=== PATIENT | female | born 2000 | race Caucasian/White ===

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

== ENCOUNTER 2022-01-17 06:48 | Emergency (ER) | payer OTHER, MEDICAID, SELFPAY ==
[2022-01-17] VITALS (10 sets, daily range): BP systolic 97–120; BP diastolic 51–64; PULSE 94–116; RESP 20; TEMP 37.8; O2SAT 78–98; BMI 37.8
[2022-01-17 07:10] LABS: COVID19 -Nasal RAPID POSITIVE (Negative)
--- NOTE | 2022-01-17 07:21 | ED_ITS ---
HPI - General Adult <Jessica Hazel MD - Last Filed: 01/21/22 03:33> General Chief complaint: Nausea/Vomiting/Diarrhea Stated complaint: Sick, fever, n/v/d, coughing Time Seen by Provider: 01/17/22 06:55 Source: patient Mode of arrival: Ambulatory History of Present Illness HPI narrative: 21-year-old woman with no significant medical problems presents with fever, vomiting dizziness general malaise body aches. Does not describe significant cough but she does have a significant headache. She notes that she has been vomiting significantly all night. Mom has similar symptoms not quite as severe. Last menstrual period was 3 weeks ago and she is not currently sexually active with Men. Related Data Previous Rx's Medication Instructions Recorded ondansetron 4 mg disintegrating 4 mg PO Q8H PRN #10 tab 01/17/22 tablet Allergies Allergy/AdvReac Type Severity Reaction Status Date / Time No Known Drug Allergies Allergy Verified 10/06/20 07:02 Review of Systems <Jessica Hazel MD - Last Filed: 01/21/22 03:33> Review of Systems Narrative: Remainder of complete review of systems is otherwise unremarkable except for that included in the HPI. Patient History <Jessica Hazel MD - Last Filed: 01/21/22 03:33> Medical History Irregular menstrual cycle Social History Smoking Status: Never smoker Smoking Status: Never smoker alcohol intake frequency: 0-2 drinks per day Substance Use Type: does not use Exam <Jessica Hazel MD - Last Filed: 01/21/22 03:33> Initial Vital Signs Initial Vital Signs: Vital Signs Temperature 100.1 F H 01/17/22 06:56 Pulse Rate 115 H 01/17/22 06:56 Respiratory Rate 20 01/17/22 06:56 Blood Pressure 120/64 01/17/22 06:56 Pulse Oximetry 97 01/17/22 06:56 General: Flushed, appears sick but not acutely toxic, slightly tachycardic but not tachypneic nor hypoxic. Able to give a complete and coherent history. Well-nourished well-developed HEENT: Dry mucous membranes, normal sclera with reactive pupils, Respiratory: Lungs are clear to auscultation, no wheezing no rales no rhonchi. Full and symmetrical air movement Cardiac: Tachycardic but otherwiseRegular rate and rhythm no murmurs no bruits Abdomen: Soft, mild epigastric tenderness, no rebound or guarding good bowel tones, no flank pain Skin: Pale but otherwise Warm and dry, no rashes Neurologic: Grossly neurologically intact with no obvious asymmetries or a bnormalities Extremities: No trauma, well perfused Psych: Cooperative, appropriate insight and affect <Maribel Kuo DO - Last Filed: 01/17/22 09:30> Initial Vital Signs Initial Vital Signs: Vital Signs Temperature 100.1 F H 01/17/22 06:56 Pulse Rate 115 H 01/17/22 06:56 Respiratory Rate 20 01/17/22 06:56 Blood Pressure 120/64 01/17/22 06:56 Pulse Oximetry 97 01/17/22 06:56 Course <Jessica Hazel MD - Last Filed: 01/21/22 03:33> Orders Ordered: Discontinued Medications Sodium Chloride (Normal Saline 0.9%) 1,000 mls @ 1,000 mls/hr IV BOLUS ONE Stop: 01/17/22 08:29 Last Infusion: 01/17/22 08:44 Dose: 0 mls/hr Documented by: Admin: 01/17/22 07:34 Dose: 1,000 mls/hr Documented by: DALJIT Sodium Chloride (Normal Saline 0.9%) 1,000 mls @ 1,000 mls/hr IV BOLUS ONE Stop: 01/17/22 08:55 Last Infusion: 01/17/22 09:47 Dose: 0 mls/hr Documented by: Admin: 01/17/22 08:44 Dose: 1,000 mls/hr Documented by: ELIF Ketorolac Tromethamine (Ketorolac 30 Mg/Ml Vial) 15 mg IV NOW ONE Stop: 01/17/22 07:29 Last Admin: 01/17/22 07:33 Dose: 15 mg Documented by: DALJIT Ondansetron HCl (Ondansetron 4 Mg/2 Ml Inj) 4 mg IV NOW ONE Stop: 01/17/22 07:57 Last Admin: 01/17/22 08:44 Dose: 4 mg Documented by: ELIF Vital Signs Vital signs: Vital Signs - 8 hr 01/17/22 06:56 01/17/22 06:59 01/17/22 07:00 Temperature 100.1 F H Pulse Rate 115 H 115 H 116 H Respiratory Rate 20 Blood Pressure 120/64 107/56 L Pulse Oximetry 97 95 95 01/17/22 07:29 01/17/22 07:30 01/17/22 07:38 Temperature Pulse Rate 94 H 113 H Respiratory Rate Blood Pressure 113/57 L Pulse Oximetry 78 L 94 01/17/22 08:00 01/17/22 08:30 Temperature Pulse Rate 106 H 105 H Respiratory Rate Blood Pressure 115/56 L 109/58 L Pulse Oximetry 93 93 <Maribel Kuo DO - Last Filed: 01/17/22 09:30> Orders Ordered: Discontinued Medications Sodium Chloride (Normal Saline 0.9%) 1,000 mls @ 1,000 mls/hr IV BOLUS ONE Stop: 01/17/22 08:29 Last Infusion: 01/17/22 08:44 Dose: 0 mls/hr Documented by: Admin: 01/17/22 07:34 Dose: 1,000 mls/hr Documented by: DALJIT Sodium Chloride (Normal Saline 0.9%) 1,000 mls @ 1,000 mls/hr IV BOLUS ONE Stop: 01/17/22 08:55 Last Infusion: 01/17/22 09:47 Dose: 0 mls/hr Documented by: Admin: 01/17/22 08:44 Dose: 1,000 mls/hr Documented by: ELIF Ketorolac Tromethamine (Ketorolac 30 Mg/Ml Vial) 15 mg IV NOW ONE Stop: 01/17/22 07:29 Last Admin: 01/17/22 07:33 Dose: 15 mg Documented by: DALJIT Ondansetron HCl (Ondansetron 4 Mg/2 Ml Inj) 4 mg IV NOW ONE Stop: 01/17/22 07:57 Last Admin: 01/17/22 08:44 Dose: 4 mg Documented by: ELIF Vital Signs Vital signs: Vital Signs - 8 hr 01/17/22 06:56 01/17/22 06:59 01/17/22 07:00 Temperature 100.1 F H Pulse Rate 115 H 115 H 116 H Respiratory Rate 20 Blood Pressure 120/64 107/56 L Pulse Oximetry 97 95 95 01/17/22 07:29 01/17/22 07:30 01/17/22 07:38 Temperature Pulse Rate 94 H 113 H Respiratory Rate Blood Pressure 113/57 L Pulse Oximetry 78 L 94 01/17/22 08:00 01/17/22 08:30 Temperature Pulse Rate 106 H 105 H Respiratory Rate Blood Pressure 115/56 L 109/58 L Pulse Oximetry 93 93 Medical Decision Making <Jessica Hazel MD - Last Filed: 01/21/22 03:33> Lab Data Result diagrams: 01/17/22 08:01 01/17/22 08:01 Labs: Lab Results 01/17/22 01/17/22 01/17/22 Range/Units 06:55 08:01 08:01 WBC 6.7 (4.5-11.0) X10^3/uL RBC 4.59 (4.0-5.2) X10^6/uL Hgb 12.4 (12.0-16.0) g/dL Hct 36.5 (36-46) % MCV 79.5 L (80-100) fL MCH 27.0 (26-34) PG MCHC 33.9 (30-36) % RDW 13.7 (11.6-14.8) % Plt Count 260 (150-400) X10^3/uL Neut % (Auto) 80.9 H (50-75) % Lymph % (Auto) 6.1 L (25-40) % [place] % (Auto) 12.5 (3-14) % Eos % (Auto) 0.0 L (2-4) % Baso % (Auto) 0.5 (0-2) % Neut # (Auto) 5400 (2345-6900) /uL Lymph # (Auto) 400 L (1282-9764) /uL [place] # (Auto) 800 (0-900) /uL Eos # (Auto) 0 (0-450) /uL Baso # (Auto) 0 (0-100) /uL Sodium 135 L (137-145) mmol/L Potassium 3.6 (3.4-5.1) mmol/L Chloride 102 (98-107) mmol/L Carbon Dioxide 22 (22-32) mmol/L BUN 12 (7-17) mg/dL Creatinine 0.78 (0.52-1.04) mg/dL Estimated GFR > 60 (>60) mL/min BUN/Creatinine Ratio 15.4 (6-22) Glucose 129 H (70-100) mg/dL Calcium 8.9 (8.4-10.2) mg/dL Magnesium 1.9 (1.6-2.3) mg/dL Total Bilirubin 0.5 (0.2-1.3) mg/dL AST 33 (14-36) IU/L ALT 16 (<35) IU/L Alkaline Phosphatase 78 (38-126) U/L Total Protein 8.0 (6.3-8.2) g/dL Albumin 4.4 (3.5-5.0) g/dL Globulin 3.6 (1.7-4.1) g/dL Albumin/Globulin Ratio 1.2 (1.0-2.8) SARS-CoV-2 (PCR) Positive H (Negative) MDM Narrative Medical decision making narrative: 21-year-old woman with acute onset upper respiratory symptoms and nausea and vomiting significant headache over the last 24 hours. COVID test is positive. She is significantly dehydrated from the vomiting. She is given a L of fluid, Zofran, Toradol. Will discuss antivirals to treat her COVID infection at time of discharge <Maribel Kuo, - Last Filed: 01/17/22 09:30> Lab Data Labs: Lab Results 01/17/22 01/17/22 01/17/22 Range/Units 06:55 08:01 08:01 WBC 6.7 (4.5-11.0) X10^3/uL RBC 4.59 (4.0-5.2) X10^6/uL Hgb 12.4 (12.0-16.0) g/dL Hct 36.5 (36-46) % MCV 79.5 L (80-100) fL MCH 27.0 (26-34) PG MCHC 33.9 (30-36) % RDW 13.7 (11.6-14.8) % Plt Count 260 (150-400) X10^3/uL Neut % (Auto) 80.9 H (50-75) % Lymph % (Auto) 6.1 L (25-40) % [place] % (Auto) 12.5 (3-14) % Eos % (Auto) 0.0 L (2-4) % Baso % (Auto) 0.5 (0-2) % Neut # (Auto) 5400 (0065-5071) /uL Lymph # (Auto) 400 L (7927-4575) /uL [place] # (Auto) 800 (0-900) /uL Eos # (Auto) 0 (0-450) /uL Baso # (Auto) 0 (0-100) /uL Sodium 135 L (137-145) mmol/L Potassium 3.6 (3.4-5.1) mmol/L Chloride 102 (98-107) mmol/L Carbon Dioxide 22 (22-32) mmol/L BUN 12 (7-17) mg/dL Creatinine 0.78 (0.52-1.04) mg/dL Estimated GFR > 60 (>60) mL/min BUN/Creatinine Ratio 15.4 (6-22) Glucose 129 H (70-100) mg/dL Calcium 8.9 (8.4-10.2) mg/dL Magnesium 1.9 (1.6-2.3) mg/dL Total Bilirubin 0.5 (0.2-1.3) mg/dL AST 33 (14-36) IU/L ALT 16 (<35) IU/L Alkaline Phosphatase 78 (38-126) U/L Total Protein 8.0 (6.3-8.2) g/dL Albumin 4.4 (3.5-5.0) g/dL Globulin 3.6 (1.7-4.1) g/dL Albumin/Globulin Ratio 1.2 (1.0-2.8) SARS-CoV-2 (PCR) Positive H (Negative) [facility] Narrative Medical decision making narrative: 21-year-old woman with acute onset upper respiratory symptoms and nausea and vomiting significant headache over the last 24 hours. COVID test is positive. She is significantly dehydrated from the vomiting. She is given a L of fluid, Zofran, Toradol. Will discuss antivirals to treat her COVID infection at time of discharge Patient signed out to me by Dr. Hazel. Seen evaluated patient myself. Her heart rate has improved with IV fluids. No further vomiting in the ED. Discussion with her of packs elevated since she is unvaccinated however she declines at this time. Discussion of worsening signs or symptoms the to ED Discharge Plan Departure Patient Disposition: Home Clinical Impression: COVID-19 Instructions: DI for COVID-19 (Suspected or Confirmed ) Activity Restrictions/Additional Instructions: *You have been diagnosed with COVID-19 *What to do: Please follow CDC guidelines in regards to quarantine. Recommend staying hydrated with Gatorade or Gatorade like product. Tylenol ibuprofen as needed headache. Monitor your oxygen. If oxygen is less than 90% then return to the ER. *Continue to take medications as directed Zofran 4 mg every 8 hours if needed for nausea vomiting *Follow up with your primary care provider in 2-3 days or call [phone] *Return to ER if you should have persistent vomiting worsening headache oxygen l ess than 90% or any new, worsening or concerning symptoms Prescriptions: New ondansetron 4 mg tablet,disintegrating 4 mg PO Q8H PRN (Reason: nausea and vomiting) Qty: 10 0RF
[2022-01-17] MEDS: KETOROLAC 30 MG/ML VIAL 15 MG IV (07:33)
[2022-01-17] MEDS: SODIUM CHLORIDE 0.9% 1,000 ML 1000 ML IV ×2 (07:34→08:44)
[2022-01-17 08:05] LABS: Add Manual Diff / Slide Review NO; Basophils Absolute Auto 0 /uL (0-100); Basophils Percent Auto 0.5 % (0-2); Eosinophils Absolute Auto 0 /uL (0-450); Hematocrit 36.5 % (36-46); Hemoglobin 12.4 g/dL (12.0-16.0); Lymphocytes Absolute Auto 400 /uL (1100-4500); Lymphocytes Percent Auto 6.1 % (25-40); Mean Corpuscular HGB Conc 33.9 % (30-36); Mean Corpuscular Volume 79.5 fL (80-100); Monocytes Absolute Auto 800 /uL (0-900); Monocytes Percent Auto 12.5 % (3-14); Neutrophils Absolute Auto 5400 /uL (1500-7000); Neutrophils Percent Auto 80.9 % (50-75); Platelet Count 260 X10^3/uL (150-400); Red Blood Cell Count 4.59 X10^6/uL (4.0-5.2); Red Cell Distribution Width 13.7 % (11.6-14.8); White Blood Cell Count 6.7 X10^3/uL (4.5-11.0)
[2022-01-17 08:10] LABS: Alanine Aminotransferase 16 IU/L (<35); Albumin 4.4 g/dL (3.5-5.0); Albumin Globulin Ratio 1.2 (1.0-2.8); Alkaline Phosphatase 78 U/L (38-126); Aspartate Aminotransferase 33 IU/L (14-36); BUN Creatinine Ratio 15.4 (6-22); Bilirubin Total 0.5 mg/dL (0.2-1.3); Blood Urea Nitrogen 12 mg/dL (7-17); Calcium 8.9 mg/dL (8.4-10.2); Carbon Dioxide 22 mmol/L (22-32); Chloride 102 mmol/L (98-107); Estimated Glomerular Filt Rate > 60 mL/min (>60); Globulin 3.6 g/dL (1.7-4.1); Glucose 129 mg/dL (70-100); HEMOLYSIS 19 (0-50); Magnesium 1.9 mg/dL (1.6-2.3); Potassium 3.6 mmol/L (3.4-5.1); Sodium 135 mmol/L (137-145)
[2022-01-17] MEDS: ONDANSETRON 4 MG/2 ML INJ IV (08:44)
== END 2022-01-17 09:55 | disposition home or self-care (01) ==
PROVIDERS: Emergency Medicine; Emergency Provider Emergency Medicine
DX: U07.1 COVID-19 (principal); R42 Dizziness and giddiness; R51.9 Headache, unspecified
CPT/HCPCS: 36415; 80053; 83735; 85025; 87635; 96361; 96374; 96375; 99284; C9803; J1885; J2405

== ENCOUNTER 2022-06-25 17:10 | Emergency (ER) | payer OTHER, MEDICAID, SELFPAY ==
[2022-06-25 17:50] VITALS: BP 159/80; PULSE 87; RESP 17; TEMP 36.6; O2SAT 100; BMI 37.8
--- NOTE | 2022-06-25 17:53 | DI.RAD.S_ITS ---
PROCEDURE: XR WRIST LT MIN 3V INDICATIONS: fall TECHNIQUE: For views of the wrist were acquired. COMPARISON: None. FINDINGS: Bones: No acute fractures or dislocations. No suspicious bony lesions. Scaphoid view: Intact scaphoid. Soft tissues: No suspicious soft tissue calcifications. IMPRESSION: No acute osseous abnormality. If clinical suspicion and/or symptoms persist, additional imaging with repeat plain films, or advanced imaging (e.g. CT, MRI) may be helpful for further assessment. Approved by: Kole Munoz M.D. on 06/25/2022 at 18:17
--- NOTE | 2022-06-25 17:53 | DI.RAD.S_ITS ---
PROCEDURE: XR HAND LT MIN 3V INDICATIONS: fall TECHNIQUE: 3 views of the hand acquired. COMPARISON: None. FINDINGS: Bones: No acute fractures or dislocations. Carpal bones are normally aligned. No suspicious bony lesions. Soft tissues: No suspicious soft tissue calcifications. IMPRESSION: No acute osseous abnormality. If clinical suspicion and/or symptoms persist, additional imaging with repeat plain films, or advanced imaging (e.g. CT, MRI) may be helpful for further assessment. Approved by: Kole Munoz M.D. on 06/25/2022 at 18:18
--- NOTE | 2022-06-25 18:53 | ED.GENADULT ---
HPI - General Adult General Chief complaint: Extremity Injury, Upper Stated complaint: fall, L hand pain- thinks sprain or break Time Seen by Provider: 06/25/22 18:24 Source: patient Mode of arrival: Ambulatory History of Present Illness HPI narrative: 21-year-old female who is here for evaluation of left hand/wrist pain. She is left handed. It occurred while she was participating in a Halloween event. States she fell forward with outstretched hands and then her left wrist rolled up underneath her. She has discomfort throughout her left wrist. Related Data Allergies Allergy/AdvReac Type Severity Reaction Status Date / Time No Known Drug Allergies Allergy Verified 06/25/22 17:52 Review of Systems Constitutional Constitutional: Reports system reviewed and no additional complaints, except as documented Musculoskeletal Musculoskeletal: Reports system reviewed and no additional complaints, except as documented Integumentary/Breasts Skin/Breast: Reports system reviewed and no additional complaints, except as documented Neurologic Neurologic: Reports system reviewed and no additional complaints, except as documented Hematologic/Lymphatic On Anticoagulants: No Patient History Medical History Irregular menstrual cycle Social History Smoking Status: Never smoker Smoking Status: Never smoker alcohol intake frequency: other Substance Use Type: does not use Exam Initial Vital Signs Initial Vital Signs: Vital Signs Temperature 98 F 06/25/22 17:50 Pulse Rate 87 06/25/22 17:50 Respiratory Rate 17 06/25/22 17:50 Blood Pressure 159/80 H 06/25/22 17:50 Pulse Oximetry 100 06/25/22 17:50 Oxygen Delivery Method 06/25/22 17:50 HENCA Head: normal to inspection and normocephalic Resp Effort & Inspection: normal respiratory effort Cardio Pulses: radial pulses present on the left Skin General: no rashes or lesions noted Neuro Sensory Exam: no sensory deficits noted Extrem Other: Left shoulder and left elbow unremarkable. She does have tenderness throughout the left wrist and also at the snuffbox area. Can not flex and extend because of discomfort. Procedures Orthopedic Splinting/Casting Injury #1: Side: left Upper Extremity Injury Location: wrist Upper Extremity Immobilizer: wrist splint Course Orders Ordered: ED Orders 06/25/22 17:53 XR hand LT min 3V Stat XR wrist LT min 3V Stat Discontinued Medications Acetaminophen (Acetaminophen 325 Mg Tablet) 650 mg PO NOW ONE Stop: 06/25/22 18:52 Last Admin: 06/25/22 18:54 Dose: 650 mg Documented By: MARIANA Vital Signs Vital signs: Vital Signs - 8 hr 06/25/22 17:50 Temperature 98 F Pulse Rate 87 Respiratory Rate 17 Blood Pressure 159/80 H Pulse Oximetry 100 Oxygen Delivery Method Room Air Medical Decision Making Imaging Data Extremity x-ray #1: Radiologist's Impression: Close Wrist X-Ray (Signed) Kole Munoz - 06/25/22 Hand X-Ray (Signed) Kole Munoz - 06/25/22 Pelvis Ultrasound (Signed) Nils Valdes - 10/06/20 Launch?Image [address] [address] XRay Report Signed Patient: Winnie Zhang MR#: [id number] : 2000 Acct:[id number] Age/Sex: 21 / F Date of Service: 06/25/22 Loc: ED Accession Number: [id number] ?? Procedure: XR hand LT min 3V Ordering Provider: Satinder Mccord D.O. PROCEDURE:? XR HAND LT MIN 3V ? INDICATIONS:? fall ? TECHNIQUE:? 3 views of the hand acquired.? ? COMPARISON:? None. ? FINDINGS:? ? Bones:? No acute fractures or dislocations.? Carpal bones are normally aligned.? No suspicious bony lesions.? ? Soft tissues:? No suspicious soft tissue calcifications.? ? IMPRESSION:? No acute osseous abnormality.? If clinical suspicion and/or symptoms persist, additional imaging with repeat plain films, or advanced imaging (e.g. CT, MRI) may be helpful for further assessment. ? ? Approved by: Kole Munoz M.D. on 06/25/2022 at 18:18? Extremity x-ray #2: Radiologist's Impression: [address] [address] XRay Report Signed Patient: Winnie Zhang MR#: [id number] : 2000 Acct:[id number] Age/Sex: 21 / F Date of Service: 06/25/22 Loc: ED Accession Number: [id number] ?? Procedure: XR wrist LT min 3V Ordering Provider: Satinder Mccord D.O. PROCEDURE:? XR WRIST LT MIN 3V ? INDICATIONS: fall ? TECHNIQUE:? For views of the wrist were acquired.? ? COMPARISON:? None. ? FINDINGS:? ? Bones:? No acute fractures or dislocations.? No suspicious bony lesions.? ? Scaphoid view:? Intact scaphoid. ? Soft tissues:? No suspicious soft tissue calcifications.? ? IMPRESSION:? No acute osseous abnormality.? If clinical suspicion and/or symptoms persist, additional imaging with repeat plain films, or advanced imaging (e.g. CT, MRI) may be helpful for further assessment. ? ? ? Approved by: Kole Munoz M.D. on 06/25/2022 at 18:17? MDM Narrative Medical decision making narrative: Patient is neurovascularly intact. X-ray shows no signs of fracture or dislocation. Because of the location of the discomfort we will place her in a removable splint. She can take it off to shower and wash her hands but will have her wear it the majority of the time. She was instructed to continue to ice her wrist. She can take it off as tolerated. If she is still having discomfort in a week from now she will follow-up for repeat x-rays. Discharge Plan Departure Patient Disposition: Home Clinical Impression: Sprain and strain of wrist Instructions: DI for Wrist Sprain, How To Perform RICE (Rest, Ice, Compress, Elevate) Activity Restrictions/Additional Instructions: The x-ray today did not show any signs of fractures. You were placed in a splint for your comfort. I do recommend that the next couple days you keep it on the majority of the time however you can take it off to shower and wash your hands and also to ice your wrist. You can take Tylenol and or ibuprofen for discomfort. If in 7-10 days your still having discomfort then you do need to be re-evaluated and most likely need repeat x-rays. Visit Report Forms: Patient Portal/API
[2022-06-25] MEDS: ACETAMINOPHEN 325 MG TABLET 650 MG PO (18:54)
== END 2022-06-25 19:01 | disposition home or self-care (01) ==
PROVIDERS: Emergency Provider Emergency Medicine
DX: S63.502A Unspecified sprain of left wrist, initial encounter (principal); S66.912A Strain of unspecified muscle, fascia and tendon at wrist and hand level, left hand, initial encounter; W18.30XA Fall on same level, unspecified, initial encounter
CPT/HCPCS: 73110; 73130; 99283

== ENCOUNTER 2022-10-15 09:59 | Emergency (ER) | payer OTHER, MEDICAID, SELFPAY ==
[2022-10-15 10:09] VITALS: BP 128/78; PULSE 104; RESP 18; TEMP 36.6; O2SAT 99; BMI 36.7
--- NOTE | 2022-10-15 10:14 | DI.US.S_ITS ---
PROCEDURE: US PELVIC COMPLETE INDICATIONS: DUB, PAIN X 3 MONTHS TECHNIQUE: Real-time scanning was performed of the pelvic organs, with image documentation. Additional endovaginal scanning was necessary due to incomplete visualization of the adnexal and endometrial structures by transabdominal scanning. COMPARISON: [facility], US, US PELVIC COMPLETE, 10/06/2020, 8:45. FINDINGS: Uterus: Uterus is anteverted and normal in size at 8 x 3.3 x 4.8 cm. The myometrium is homogeneous. The endometrium measures 7 mm combined thickness. The endometrium demonstrates a heterogeneous appearance. No abnormal vascularity can be seen along the endometrial stripe. Ovaries: The right ovary measures 1.9 x 3.3 x 2.3 cm, with a calculated ovarian volume of 7.4 cc. The left ovary measures 3 x 2.6 x 2.5 cm, with a calculated ovarian volume of 10.4 cc. The ovaries have a normal sonographic appearance. More than 12 follicles can be seen in each ovary. No adnexal masses are seen. Other: No pathologic free abdominal or pelvic fluid. IMPRESSION: More than 12 follicles can be seen involving each ovary, which is consistent with polycystic ovarian syndrome. We strive to produce accurate, complete, and clear reports of imaging services. To assist us in improving patient care, this report was composed using standard report templates and voice recognition software. Therefore, it may contain abnormal punctuation, insertions and/or omissions. Occasional wrong-word or sound-alike substitutions may occur. Though we review the report and make efforts to correct it, we do recommend that the report be read carefully in proper context to recognize any text inaccuracies. Dictated by: Nils Valdes M.D. on 10/15/2022 at 10:54 Approved by: Nils Valdes M.D. on 10/15/2022 at 10:55
--- NOTE | 2022-10-15 10:23 | PC.NURSE ---
pt states she uses a pad and a tampon and has to change them both every hour and this has been going on for the last 3 months. she has not seen a provider for this due to hating the doctor and also being on vacation. has cramps that started one week ago.
[2022-10-15 10:29] LABS: Add Manual Diff / Slide Review NO; Basophils Absolute Auto 0 /uL (0-100); Basophils Percent Auto 0.3 % (0-2); Eosinophils Absolute Auto 100 /uL (0-450); Hematocrit 36.2 % (36-46); Hemoglobin 12.2 g/dL (12.0-16.0); Lymphocytes Absolute Auto 1200 /uL (1100-4500); Lymphocytes Percent Auto 11.1 % (25-40); Mean Corpuscular HGB Conc 33.8 % (30-36); Mean Corpuscular Hemoglobin 28.5 PG (26-34); Mean Corpuscular Volume 84.5 fL (80-100); Monocytes Absolute Auto 600 /uL (0-900); Monocytes Percent Auto 5.7 % (3-14); Neutrophils Absolute Auto 9000 /uL (1500-7000); Neutrophils Percent Auto 81.9 % (50-75); Platelet Count 347 X10^3/uL (150-400); Red Blood Cell Count 4.29 X10^6/uL (4.0-5.2); Red Cell Distribution Width 13.2 % (11.6-14.8)
[2022-10-15 10:38] LABS: BUN Creatinine Ratio 17.7 (6-22); Blood Urea Nitrogen 11 mg/dL (7-17); Calcium 9.1 mg/dL (8.4-10.2); Carbon Dioxide 26 mmol/L (22-32); Chloride 102 mmol/L (98-107); Estimated Glomerular Filt Rate > 60 mL/min (>60); Glucose 97 mg/dL (70-100); HEMOLYSIS < 15 (0-50); Potassium 4.2 mmol/L (3.4-5.1); Sodium 140 mmol/L (137-145)
--- NOTE | 2022-10-15 12:04 | ED_ITS ---
HPI - Female Genitourinary <AJC Reynaga - Last Filed: 10/15/22 13:12> General Chief complaint: Vaginal Bleeding Stated complaint: shaking; bad period trouble Time Seen by Provider: 10/15/22 12:00 Source: patient Mode of arrival: Ambulatory History of Present Illness HPI Narrative: 22-year-old female, daily smoker, presents to the emergency department with lower back and abdominal pain x1 month and increased and persistent vaginal bleeding x3 months. Patient states that she has been soaking through a tampon and a pad multiple times per day, sometimes as frequently as every hour. Patient states that she has been taking iron for this. Patient has a history of PCOS. Patient has not been seen her family doctor for this because she does not like them. Patient's mother, a nurse, states that every time she contacts that family doctor and explains how much pain she is in, is told to go to the emerg ency department. Related Data Previous Rx's Medication Instructions Recorded cephalexin 500 mg capsule 1,000 mg PO BID uti 7 days #28 caps 10/15/22 Allergies Allergy/AdvReac Type Severity Reaction Status Date / Time No Known Drug Allergies Allergy Verified 06/25/22 17:52 Review of Systems <JAC Reynaga - Last Filed: 10/15/22 13:12> Review of Systems Narrative: Narrative: See HPI. GENERAL: Denies fatigue, fever, sweats. Endorses chills. HEENT: Denies sinus pain, ear pain, sore throat, difficulty swallowing, dizziness. RESPIRATORY: Denies dyspnea, cough, wheezing, sputum. CARDIOVASCULAR: Denies chest pain, palpitations, edema. GASTROINTESTINAL: Denies current nausea, vomiting, diarrhea, constipation. Endorses lower abdominal pain. : Denies dysuria, frequency, incontinence, hematuria, urinary retention, flank pain.. Endorses increased vaginal bleeding. MSK: Denies weakness, joint pain, or bony pain. SKIN: Denies rash, skin lesions, or pruritis. NEUROLOGIC: Denies weakness, dizziness, headache, numbness, confusion. PSYCHIATRIC: No concerning psychosocial issues. Patient History <JAC Reynaga - Last Filed: 10/15/22 13:12> Medical History Irregular menstrual cycle tobacco type: vaping alcohol intake frequency: other Last Alcoholic Drink: none Substance Use Type: marijuana Exam <JAC Reynaga - Last Filed: 10/15/22 13:12> Narrative Exam Narrative: Exam Narrative: GENERAL: This is a well-nourished, well-developed patient, in no acute distress. HEAD: Atraumatic. Normocephalic. CARDIOVASCULAR: Regular rate and rhythm without murmurs, peripheral pulses intact, cap refill <2 sec. RESPIRATORY: Breath sounds equal and clear bilaterally. No wheezes, rales, or rhonchi. No cough. No increased respiratory effort. No accessory muscle use. GASTROINTESTINAL: Abdomen soft, mild left-sided tenderness, nondistended without guarding or rebound. No suprapubic pain. MSK: Moves all extremities. Normal range of motion, no clubbing or edema. Neurovascularly intact. Mild left lower back pain. No CVA tenderness. NEURO: A&O x 3. SKIN: Warm, dry, no rashes or lesions noted. Initial Vital Signs Initial Vital Signs: Vital Signs Temperature 97.8 F 10/15/22 10:09 Pulse Rate 104 H 10/15/22 10:09 Respiratory Rate 18 10/15/22 10:09 Blood Pressure 128/78 10/15/22 10:09 Pulse Oximetry 99 10/15/22 10:09 Oxygen Delivery Method 10/15/22 10:09 Reviewed <Giana Elizabeth DO - Last Filed: 10/15/22 18:54> Initial Vital Signs Initial Vital Signs: Vital Signs Temperature 97.8 F 10/15/22 10:09 Pulse Rate 104 H 10/15/22 10:09 Respiratory Rate 18 10/15/22 10:09 Blood Pressure 128/78 10/15/22 10:09 Pulse Oximetry 99 10/15/22 10:09 Oxygen Delivery Method 10/15/22 10:09 Course <JAC Reynaga - Last Filed: 10/15/22 13:12> Orders Ordered: ED Orders 10/15/22 10:13 Basic Metabolic Panel Stat Complete Blood Count AUTO DIFF Stat Type and Screen Stat 10/15/22 10:14 US pelvic complete Stat 10/15/22 12:30 Urine Culture Stat Urine Microscopic Stat Discontinued Medications Ketorolac Tromethamine (Ketorolac 30 Mg/Ml Vial) 30 mg IV NOW ONE Stop: 10/15/22 12:47 Last Admin: 10/15/22 12:52 Dose: 30 mg Documented By: NR Vital Signs Vital signs: Vital Signs - 8 hr 10/15/22 12:41 Pulse Rate 100 H Respiratory Rate 16 Blood Pressure 131/60 Pulse Oximetry 100 Oxygen Delivery Method Room Air <Giana Elizabeth DO - Last Filed: 10/15/22 18:54> Orders Ordered: ED Orders 10/15/22 10:13 Basic Metabolic Panel Stat Complete Blood Count AUTO DIFF Stat Type and Screen Stat 10/15/22 10:14 US pelvic complete Stat 10/15/22 12:30 Urine Culture Stat Urine Microscopic Stat Discontinued Medications Ketorolac Tromethamine (Ketorolac 30 Mg/Ml Vial) 30 mg IV NOW ONE Stop: 10/15/22 12:47 Last Admin: 10/15/22 12:52 Dose: 30 mg Documented By: NR Vital Signs Vital signs: Vital Signs - 8 hr 10/15/22 12:41 Pulse Rate 100 H Respiratory Rate 16 Blood Pressure 131/60 Pulse Oximetry 100 Oxygen Delivery Method Room Air MDM - Female Genitourinary <JAC Reynaga - Last Filed: 10/15/22 13:12> Differential Diagnosis Differential diagnosis: Likely urinary tract infection, dysmenorrhea and other (PCOS) Lab Data 10/15/22 10:13 10/15/22 10:13 Labs: Lab Results 10/15/22 10/15/22 10/15/22 Range/Units 10:13 10:13 10:13 WBC 11.0 (4.5-11.0) X10^3/uL RBC 4.29 (4.0-5.2) X10^6/uL Hgb 12.2 (12.0-16.0) g/dL Hct 36.2 (36-46) % MCV 84.5 (80-100) fL MCH 28.5 (26-34) PG MCHC 33.8 (30-36) % RDW 13.2 (11.6-14.8) % Plt Count 347 (150-400) X10^3/uL Neut % (Auto) 81.9 H (50-75) % Lymph % (Auto) 11.1 L (25-40) % Calloway % (Auto) 5.7 (3-14) % Eos % (Auto) 1.0 L (2-4) % Baso % (Auto) 0.3 (0-2) % Neut # (Auto) 9000 H (9367-3562) /uL Lymph # (Auto) 1200 (7861-5250) /uL Calloway # (Auto) 600 (0-900) /uL Eos # (Auto) 100 (0-450) /uL Baso # (Auto) 0 (0-100) /uL Sodium 140 (137-145) mmol/L Potassium 4.2 (3.4-5.1) mmol/L Chloride 102 (98-107) mmol/L Carbon Dioxide 26 (22-32) mmol/L BUN 11 (7-17) mg/dL Creatinine 0.62 (0.52-1.04) mg/dL Estimated GFR > 60 (>60) mL/min BUN/Creatinine Ratio 17.7 (6-22) Glucose 97 (70-100) mg/dL Calcium 9.1 (8.4-10.2) mg/dL Urine RBC (0-5/HPF) Urine WBC (0-5/HPF) Ur Squamous Epith Cells (0-5/HPF) Amorphous Sediment Urine Bacteria (None) Urine Mucus (Negative) Ur Culture Indicated? Blood Type O Negative Antibody Screen Negative 10/15/22 Range/Units 12:30 WBC (4.5-11.0) X10^3/uL RBC (4.0-5.2) X10^6/uL Hgb (12.0-16.0) g/dL Hct (36-46) % MCV (80-100) fL MCH (26-34) PG MCHC (30-36) % RDW (11.6-14.8) % Plt Count (150-400) X10^3/uL Neut % (Auto) (50-75) % Lymph % (Auto) (25-40) % Calloway % (Auto) (3-14) % Eos % (Auto) (2-4) % Baso % (Auto) (0-2) % Neut # (Auto) (2959-3208) /uL Lymph # (Auto) (0877-0677) /uL Calloway # (Auto) (0-900) /uL Eos # (Auto) (0-450) /uL Baso # (Auto) (0-100) /uL Sodium (137-145) mmol/L Potassium (3.4-5.1) mmol/L Chloride (98-107) mmol/L Carbon Dioxide (22-32) mmol/L BUN (7-17) mg/dL Creatinine (0.52-1.04) mg/dL Estimated GFR (>60) mL/min BUN/Creatinine Ratio (6-22) Glucose (70-100) mg/dL Calcium (8.4-10.2) mg/dL Urine RBC 5-10/hpf H (0-5/HPF) Urine WBC 30-100/hpf H (0-5/HPF) Ur Squamous Epith Cells 0-1 /hpf (0-5/HPF) Amorphous Sediment 1+ Urine Bacteria Many (>30) H (None) Urine Mucus 1+ H (Negative) Ur Culture Indicated? Specimen cultured Blood Type Antibody Screen Urine Dip Bedside Urine Glucose Negative Bedside Urine Bilirubin - Negative Bedside Urine Ketone - Negative Urine Specific [place] 1.025 Bedside Urine Occult Blood +++ Bedside Urine pH 6.0 Bedside Urine Protein ++ 100 Bedside Urine Urobilinogen - Negative Bedside Urine Nitrite + Positive Bedside Urine Leukocytes ++ 125 Esterase Imaging Data US - [employer] SALESPERSON: Radiologist's Impression: [place] [address] Ultrasound Report Signed Patient: Winnie Zhang MR#: [id number] : 2000 Acct:[id number] Age/Sex: 22 / F Date of Service: 10/15/22 Loc: ED Accession Number: [id number] ?? Procedure: US pelvic complete Ordering Provider: Giana Elizabeth D.O. PROCEDURE:? US PELVIC COMPLETE ? INDICATIONS:? DUB, PAIN X 3 MONTHS ? TECHNIQUE:? Real-time scanning was performed of the pelvic organs, with image documentation.? Additional endovaginal scanning was necessary due to incomplete visualization of the adnexal and endometrial structures by transabdominal scanning.? ? COMPARISON:? [facility], , US PELVIC COMPLETE, 10/06/2020, 8:45. ? FINDINGS:? ?? Uterus:? Uterus is anteverted and normal in size at 8 x 3.3 x 4.8 cm. The myometrium is homogeneous. ? The endometrium measures 7 mm combined thickness.? The endometrium demonstrates a heterogeneous appearance.? No abnormal vascularity can be seen along the endometrial stripe. ? Ovaries:? The right ovary measures 1.9 x 3.3 x 2.3 cm, with a calculated ovarian volume of 7.4 cc. The left ovary measures 3 x 2.6 x 2.5 cm, with a calculated ovarian volume of 10.4 cc. The ovaries have a normal sonographic appearance.? More than 12 follicl es can be seen in each ovary.? No adnexal masses are seen. ? Other:? No pathologic free abdominal or pelvic fluid. ? ? IMPRESSION:? More than 12 follicles can be seen involving each ovary, which is consistent with polycystic ovarian syndrome.? ? ? We strive to produce accurate, complete, and clear reports of imaging services. To assist us in improving patient care, this report was composed using standard report templates and voice recognition software. Therefore, it may contain abnormal punctuation, insertions and/or omissions. Occasional wrong-word or sound-alike substitutions may occur. Though we review the report and make efforts to correct it, we do recommend that the report be read carefully in proper context to recognize any text inaccuracies. ? ? Dictated by: Nlis Valdes M.D. on 10/15/2022 at 10:54 ? ? Approved by: Nils Valdes M.D. on 10/15/2022 at 10:55 ? MDM Narrative Medical decision making narrative: 22-year-old female, with history of PCOS, presents to the walk-in clinic with increased vaginal bleeding and lower abdominal pain. Assessment was encouraging but consistent with PCOS. Vaginal ultrasound reveals 12 follicles on each ovary, consistent with PCOS. Patient was given a single dose of Toradol for her pain. Point of care urine dip was consistent with UTI, positive blood, leuks and nitrates. Will treat with cephalexin, as patient states that this has worked well for her in the past. Provided a phone number for patient and mother to investigate obtaining a family doctor and OBGYN that specializes in PCOS. Discussed plan of care and return precautions with patient and mother, verbalized understanding and were agreeable course of action. <Giana Elizabeth, DO - Last Filed: 10/15/22 18:54> Lab Data Labs: Lab Results 10/15/22 10/15/22 10/15/22 Range/Units 10:13 10:13 10:13 WBC 11.0 (4.5-11.0) X10^3/uL RBC 4.29 (4.0-5.2) X10^6/uL Hgb 12.2 (12.0-16.0) g/dL Hct 36.2 (36-46) % MCV 84.5 (80-100) fL MCH 28.5 (26-34) PG MCHC 33.8 (30-36) % RDW 13.2 (11.6-14.8) % Plt Count 347 (150-400) X10^3/uL Neut % (Auto) 81.9 H (50-75) % Lymph % (Auto) 11.1 L (25-40) % Calloway % (Auto) 5.7 (3-14) % Eos % (Auto) 1.0 L (2-4) % Baso % (Auto) 0.3 (0-2) % Neut # (Auto) 9000 H (8524-3584) /uL Lymph # (Auto) 1200 (0844-6879) /uL Calloway # (Auto) 600 (0-900) /uL Eos # (Auto) 100 (0-450) /uL Baso # (Auto) 0 (0-100) /uL Sodium 140 (137-145) mmol/L Potassium 4.2 (3.4-5.1) mmol/L Chloride 102 (98-107) mmol/L Carbon Dioxide 26 (22-32) mmol/L BUN 11 (7-17) mg/dL Creatinine 0.62 (0.52-1.04) mg/dL Estimated GFR > 60 (>60) mL/min BUN/Creatinine Ratio 17.7 (6-22) Glucose 97 (70-100) mg/dL Calcium 9.1 (8.4-10.2) mg/dL Urine RBC (0-5/HPF) Urine WBC (0-5/HPF) Ur Squamous Epith Cells (0-5/HPF) Amorphous Sediment Urine Bacteria (None) Urine Mucus (Negative) Ur Culture Indicated? Blood Type O Negative Antibody Screen Negative 10/15/22 Range/Units 12:30 WBC (4.5-11.0) X10^3/uL RBC (4.0-5.2) X10^6/uL Hgb (12.0-16.0) g/dL Hct (36-46) % MCV (80-100) fL MCH (26-34) PG MCHC (30-36) % RDW (11.6-14.8) % Plt Count (150-400) X10^3/uL Neut % (Auto) (50-75) % Lymph % (Auto) (25-40) % Calloway % (Auto) (3-14) % Eos % (Auto) (2-4) % Baso % (Auto) (0-2) % Neut # (Auto) (3391-1788) /uL Lymph # (Auto) (4684-6353) /uL Calloway # (Auto) (0-900) /uL Eos # (Auto) (0-450) /uL Baso # (Auto) (0-100) /uL Sodium (137-145) mmol/L Potassium (3.4-5.1) mmol/L Chloride (98-107) mmol/L Carbon Dioxide (22-32) mmol/L BUN (7-17) mg/dL Creatinine (0.52-1.04) mg/dL Estimated GFR (>60) mL/min BUN/Creatinine Ratio (6-22) Glucose (70-100) mg/dL Calcium (8.4-10.2) mg/dL Urine RBC 5-10/hpf H (0-5/HPF) Urine WBC 30-100/hpf H (0-5/HPF) Ur Squamous Epith Cells 0-1 /hpf (0-5/HPF) Amorphous Sediment 1+ Urine Bacteria Many (>30) H (None) Urine Mucus 1+ H (Negative) Ur Culture Indicated? Specimen cultured Blood Type Antibody Screen Urine Dip Bedside Urine Glucose Negative Bedside Urine Bilirubin - Negative Bedside Urine Ketone - Negative Urine Specific [place] 1.025 Bedside Urine Occult Blood +++ Bedside Urine pH 6.0 Bedside Urine Protein ++ 100 Bedside Urine Urobilinogen - Negative Bedside Urine Nitrite + Positive Bedside Urine Leukocytes ++ 125 Esterase Discharge Plan Departure Patient Disposition: Home Clinical Impression: UTI (urinary tract infection), PCOS (polycystic ovarian syndrome) Activity Restrictions/Additional Instructions: *You have been diagnosed with PCOS and a UTI. We have given you a injection of Toradol for your pain, please do not take anymore ibuprofen or naproxen today, but may restart tomorrow. Will prescribe an antibiotic for urinary tract infection. Please contact the number below in order to obtain a family doctor and OBGYN, preferably who specializes in PCOS. For any worsening symptoms, please return to the emergency department. *What to do: *Please continue to take your regular medications as directed. [x ] New medication prescriptions sent to your pharmacy: [facility] in [place]] [ ] New medication written as a paper prescription [ ] No new medications given *Please follow up with your primary care provider in 2-3 days, call for an appointment. Let them know you were seen in the Emergency Department and that we ask that you be seen in follow up. We will electronically transmit a record of today's note if your PCP is in our system *If you do not have a primary care provider please contact the [facility] Resource line at [phone]. They will ask some questions about your medical history and help get you set up with a doctor in the community. ? Return to ER if you should have any new, worsening or concerning symptoms, such as worsening pain, severe headache, confusion, chest pain, difficulty breathing, fever greater than 101 F, shaking chills, persistent vomiting to the point that you cannot drink fluids, or other new or worsening symptoms. Prescriptions: New cephalexin 500 mg capsule 1,000 mg PO BID 7 Days Qty: 28 0RF Referrals: Miscellaneous,Doctor, [Primary Care Provider] - Stand Alone Forms: Patient Portal/API <Giana Elizabeth DO - Last Filed: 10/15/22 18:54> [facility] ED Attending Nathanature Attestation: I was immediately available in the department for consultation. Documentation has been reviewed.
[2022-10-15 12:41] VITALS: BP 131/60; PULSE 100; RESP 16; O2SAT 100
[2022-10-15] MEDS: KETOROLAC 30 MG/ML VIAL IV (12:52)
[2022-10-15 13:05] LABS: Amorphous Sediment Urine 1+; Bacteria Urine Many (>30); RBC Urine 5-10/HPF (0-5/HPF); Squamous Epithelial Cell Urine 0-1 /HPF (0-5/HPF); WBC Urine 30-100/HPF (0-5/HPF)
[2022-10-15 13:06] LABS: Culture Indicated Urine Specimen Cultured; Mucus Urine 1+ (Negative)
== END 2022-10-15 13:32 | disposition home or self-care (01) ==
PROVIDERS: Emergency Medicine; Emergency Provider Registered Nurse
DX: N39.0 Urinary tract infection, site not specified (principal); E28.2 Polycystic ovarian syndrome; R10.9 Unspecified abdominal pain; N93.9 Abnormal uterine and vaginal bleeding, unspecified
CPT/HCPCS: 36415; 76830; 76856; 80048; 81003; 81015; 85025; 86850; 86900; 86901; 87077; 87086; 87186; 96374; 99284; J1885

== ENCOUNTER → 2022-10-26 09:59 | Outpatient (CLI) | payer OTHER, MEDICAID, SELFPAY ==
[2022-10-26 11:42] LABS: Hemoglobin A1C% w Est Avg Glu 5.3 % (4.0-6.0)
[2022-10-26 11:58] LABS: Follicle Stimulating Hormone 4.07 mIU/mL; Luteinizing Hormone 7.76 mIU/mL
[2022-10-27 08:36] LABS: Insulin Level Total 22.7 uIU/mL (2.6-24.9)
[2022-11-06 15:36] LABS: Percent Free Testosterone 1.16 % (0.50-2.80); Testosterone Free 0.35 ng/dL (0.10-0.85); Testosterone Total 29.8 ng/dL (10.0-55.0)
== END ==
PROVIDERS: Referring Provider Obstetrics & Gynecology; Visit Provider Obstetrics & Gynecology
DX: E28.2 Polycystic ovarian syndrome (principal)
CPT/HCPCS: 36415; 83001; 83002; 83036; 83525; 84402; 84403

== ENCOUNTER → 2023-05-02 12:36 | Outpatient (CLI) | payer OTHER, MEDICAID, SELFPAY ==
[2023-05-02 12:45] LABS: Pregnancy Test Urine Negative (Negative)
== END ==
PROVIDERS: Visit Provider Physician Assistant
DX: R30.0 Dysuria (principal)
CPT/HCPCS: 81002; 81025; 87077; 87086; 87147

== ENCOUNTER → 2023-10-11 11:31 | Outpatient (CLI) | payer OTHER, MEDICAID, SELFPAY ==
[2023-10-11 14:00] LABS: COVID-19 CEPHEID 4-PLEX PCR Negative (Negative); Influenza A - CEPHEID Flu A NEGATIVE (NEGATIVE); Influenza B - CEPHEID Flu B NEGATIVE (NEGATIVE); Respiratory Syncytial Virus Negative (Negative)
== END ==
PROVIDERS: PCP Family Medicine; Visit Provider Physician Assistant
DX: R05.1 Acute cough (principal)
CPT/HCPCS: 0241U

== ENCOUNTER → 2023-10-11 11:32 | Outpatient (CLI) | payer OTHER, MEDICAID, SELFPAY ==
--- NOTE | 2023-10-11 11:34 | DI.RAD.S_ITS ---
PROCEDURE: XR CHEST 2V INDICATIONS: frequent SOB TECHNIQUE: 2 views of the chest were acquired. COMPARISON: None. FINDINGS: Surgical changes and devices: None. Lungs and pleura: Lungs are clear. No pleural effusions or pneumothorax. Mediastinum: Mediastinal contours are normal. Heart size is normal. Bones and chest wall: No suspicious bony abnormalities. Soft tissues appear unremarkable. IMPRESSION: No acute cardiopulmonary pathology. Dictated by: Candelario Christensen M.D. on 10/11/2023 at 16:15 Approved by: Candelario Christensen M.D. on 10/11/2023 at 16:15
== END ==
PROVIDERS: PCP Family Medicine; Referring Provider Physician Assistant; Visit Provider Physician Assistant
DX: J45.909 Unspecified asthma, uncomplicated (principal); R05.1 Acute cough
CPT/HCPCS: 0241U; 71046

== ENCOUNTER → 2023-12-04 13:32 | Outpatient (CLI) | payer SELFPAY ==
[2023-12-04 15:20] LABS: Progesterone, Total 1.21 ng/mL
== END ==
PROVIDERS: PCP Family Medicine; Referring Provider Student in an Organized Health Care Education/Training Program; Visit Provider Student in an Organized Health Care Education/Training Program
DX: N97.0 Female infertility associated with anovulation (principal)
CPT/HCPCS: 36415; 84144

== ENCOUNTER → 2024-01-19 12:14 | Outpatient (CLI) | payer OTHER, MEDICAID, SELFPAY ==
--- NOTE | 2024-01-19 12:16 | DI.RAD.S_ITS ---
PROCEDURE: XR FOREARM RT 2V INDICATIONS: eval TECHNIQUE: 2 views of the forearm were acquired. COMPARISON: [facility], CR, XR WRIST RT MIN 3V, 01/19/2024, 11:39. FINDINGS: Bones: No fractures or dislocations. There is a 5 mm lucent lesion in the central aspect of the right capitate. No associated aggressive features. Soft tissues: No suspicious soft tissue calcifications or masses. No findings to suggest presence of a elbow joint effusion. IMPRESSION: No acute bony abnormality. A nonspecific 5 mm lucent lesion in the central aspect of the capitate bone. Please see dedicated evaluation of the right wrist for further details. Dictated by: Terry De Jesus M.D. on 01/19/2024 at 16:22 Approved by: Terry De Jesus M.D. on 01/19/2024 at 16:23
--- NOTE | 2024-01-19 12:16 | DI.RAD.S_ITS ---
PROCEDURE: XR WRIST RT MIN 3V INDICATIONS: eval TECHNIQUE: 4 views of the wrist were acquired. COMPARISON: [facility], CR, XR HAND RT MIN 3V, 01/19/2024, 11:37. [facility], CR, XR WRIST LT MIN 3V, 06/25/2022, 17:57. FINDINGS: Bones: No acute fractures or dislocations. There is a 5 mm osseous lucency noted in the central aspect of the capitate; otherwise, no suspicious osseous lesions are bony erosions. No abnormal periosteal reaction. Scapholunate interval measures at the upper limits of normal. Soft tissues: No suspicious soft tissue calcifications. No suspicious soft tissue mass lesions. IMPRESSION: No acute bony abnormality. Non-specific osseous lucency involving the central aspect of the capitate without associated soft tissue mass , erosions, or periosteal reaction. Findings are favored to represent a benign process with etiologies including solitary bone cyst, fibrous dysplasia, or possible enchondroma. If there are localizing symptoms or persistent pain, consider further evaluation with MRI. Dictated by: Terry De Jesus M.D. on 01/19/2024 at 16:13 Approved by: Terry De Jesus M.D. on 01/19/2024 at 16:22
--- NOTE | 2024-01-19 12:16 | DI.RAD.S_ITS ---
PROCEDURE: XR HAND RT MIN 3V INDICATIONS: eval TECHNIQUE: 3 views of the hand(s) acquired. COMPARISON: [facility], CR, XR WRIST RT MIN 3V, 01/19/2024, 11:39. [facility], CR, XR HAND LT MIN 3V, 06/25/2022, 17:57. FINDINGS: Bones: No fractures or dislocations. Carpal bones are normally aligned. No suspicious bony lesions. Soft tissues: No suspicious soft tissue calcifications. IMPRESSION: No visualized acute fracture or dislocation. However, if clinical concern and/or pain persist, short interval imaging followup in 7-10 days is recommended, as occult injury cannot be definitively excluded. Dictated by: Miri Chan M.D. on 01/19/2024 at 17:13 Approved by: Miri Chan M.D. on 01/19/2024 at 17:14
--- NOTE | 2024-01-19 12:16 | DI.RAD.S_ITS ---
PROCEDURE: XR ELBOW RT MIN 3V INDICATIONS: eval TECHNIQUE: 3 views of the elbow were acquired. COMPARISON: None. FINDINGS: Bones: No fractures or dislocations. No suspicious bony lesions. Soft tissues: No elbow joint effusion. No suspicious soft tissue calcifications. IMPRESSION: No acute bony abnormality or significant joint effusion. If there are persistent symptoms or clinical suspicion for pathology, then repeat radiographs or advanced imaging (CT or MRI) may be considered for further evaluation. Dictated by: Terry De Jesus M.D. on 01/19/2024 at 16:24 Approved by: Terry De Jesus M.D. on 01/19/2024 at 16:24
== END ==
PROVIDERS: PCP Family Medicine; Referring Provider Nurse Practitioner Family; Visit Provider Nurse Practitioner Family
DX: M25.531 Pain in right wrist (principal); M89.9 Disorder of bone, unspecified
CPT/HCPCS: 73080; 73090; 73110; 73130